=== PATIENT | female | born 1945 | race Two or more races ===

== ENCOUNTER 2018-05-20 02:56 | Emergency (ER) | payer MEDICARE, OTHER ==
[2018-05-20 03:34] LABS: ADD MAN DIFF? NO
[2018-05-20 03:55] LABS: ANION GAP 13 (8-16); BLOOD UREA NITROGEN 20 mg/dl (7-20); CALCIUM 9.4 mg/dl (8.4-10.2); CARBON DIOXIDE 30 mmol/L (21-31); CHLORIDE 102 mmol/L (97-110); CREATININE 0.77 mg/dl (0.44-1.00); GLUCOSE 108 mg/dl (70-220); POTASSIUM 3.9 mmol/L (3.5-5.1); SODIUM 141 mmol/L (135-144)
[2018-05-20 03:56] LABS: INR 0.89; PARTIAL THROMBOPLASTIN TIME 20.4 Sec (23.0-35.0); PROTIME 12.1 Sec (11.9-14.9); PT RATIO 0.9
[2018-05-20 03:59] LABS: D-DIMER 1219.33 ng/ml (<460)
[2018-05-20 04:07] LABS: B-TYPE NATRIURETIC PEPTIDE 161 PG/ML (0-125); TROPONIN-I < 0.012 ng/ml (0.000-0.120)
[2018-05-20] MEDS: ALPRAZOLAM 0.25 MG TAB PO (04:21)
[2018-05-20 04:35] LABS: BASOPHILS % 0.3 % (0.0-2.0); EOSINOPHILS # 0.1 10^3/ul (0.0-0.5); EOSINOPHILS % 0.8 % (0.0-7.0); HEMATOCRIT 36.1 % (37.0-47.0); HEMOGLOBIN 11.9 g/dl (12.0-16.0); LYMPHOCYTES # 1.8 10^3/ul (0.8-2.9); LYMPHOCYTES % 23.9 % (15.0-51.0); MEAN CORPUSCULAR HEMOGLOBIN 31.3 pg (29.0-33.0); MEAN PLATELET VOLUME 10.8 fl (7.4-10.4); MONOCYTE # 0.6 10^3/ul (0.3-0.9); MONOCYTES % 8.4 % (0.0-11.0); NEUTROPHIL # 4.9 10^3/ul (1.6-7.5); NEUTROPHILS % 66.3 % (39.0-77.0); PLATELET COUNT 241 10^3/UL (140-415); RED CELL DISTRIBUTION WIDTH 13.5 % (11.5-14.5)
[2018-05-20 04:35] LABS: WHITE BLOOD COUNT 7.4 10^3/ul (4.8-10.8)
[2018-05-20] MEDS: SOD CHLORIDE 0.9% 100 ML (06:06)
[2018-05-20] MEDS: IOHEXOL 300MG/ML 150 ML BTL (06:06)
== END 2018-05-20 09:09 | disposition home or self-care (01) ==
LOC: E/R 02:56
DX: F41.9 Anxiety disorder, unspecified (principal); D64.9 Anemia, unspecified; I10 Essential (primary) hypertension; Z79.82 Long term (current) use of aspirin
CPT/HCPCS: 36415; 71045; 71275; 80048; 83880; 84484; 85025; 85378; 85610; 85730; 93005; 99285-25

== ENCOUNTER 2019-01-24 17:21 | Emergency (ER) | payer MEDICARE, OTHER ==
[2019-01-24 17:51] LABS: ADD MAN DIFF? NO
[2019-01-24 17:53] LABS: URINE BLOOD (Dip) POC Negative (NEGATIVE); URINE GLUCOSE (Dip) POC Negative (NEGATIVE); URINE KETONES (Dip) POC Negative (NEGATIVE); URINE LEUKOCYTE EST (Dip) POC Negative (NEGATIVE); URINE NITRITE (Dip) POC Negative (NEGATIVE); URINE TOTAL PROTEIN POC Negative (NEGATIVE)
[2019-01-24 17:56] LABS: BASOPHILS % 0.4 % (0.0-2.0); EOSINOPHILS # 0.1 10^3/ul (0.0-0.5); EOSINOPHILS % 0.6 % (0.0-7.0); HEMOGLOBIN 12.1 g/dl (12.0-16.0); LYMPHOCYTES # 3.1 10^3/ul (0.8-2.9); LYMPHOCYTES % 38.1 % (15.0-51.0); MEAN CORPUSCULAR HEMOGLOBIN 31.7 pg (29.0-33.0); MEAN CORPUSCULAR HGB CONC 32.7 g/dl (32.0-37.0); MEAN CORPUSCULAR VOLUME 96.9 fl (82.0-101.0); MONOCYTE # 0.8 10^3/ul (0.3-0.9); NEUTROPHIL # 4.1 10^3/ul (1.6-7.5); NEUTROPHILS % 50.8 % (39.0-77.0); PLATELET COUNT 234 10^3/UL (140-415); RED BLOOD COUNT 3.82 10^6/ul (4.20-5.40); RED CELL DISTRIBUTION WIDTH 13.5 % (11.5-14.5)
[2019-01-24 17:56] LABS: WHITE BLOOD COUNT 8.1 10^3/ul (4.8-10.8)
[2019-01-24 18:13] LABS: ALANINE AMINOTRANSFERASE 21 IU/L (13-69); ALBUMIN 4.2 g/dl (3.3-4.9); ALBUMIN/GLOBULIN RATIO 1.31; ALKALINE PHOSPHATASE 71 IU/L (42-121); ANION GAP 9 (5-13); ASPARTATE AMINO TRANSFERASE 23 IU/L (15-46); BILIRUBIN,INDIRECT 0.5 mg/dl (0-1.1); BILIRUBIN,TOTAL 0.5 mg/dl (0.2-1.3); BLOOD UREA NITROGEN 18 mg/dl (7-20); CALCIUM 9.3 mg/dl (8.4-10.2); CARBON DIOXIDE 26 mmol/L (21-31); CHLORIDE 105 mmol/L (97-110); CREATININE 0.75 mg/dl (0.44-1.00); GLUCOSE 93 mg/dl (70-220); LIPASE 58 U/L (23-300); POTASSIUM 4.1 mmol/L (3.5-5.1); SODIUM 140 mmol/L (135-144); TOTAL PROTEIN 7.4 g/dl (6.1-8.1)
[2019-01-24] MEDS: KETOROLAC 15 MG INJ IV (18:13)
[2019-01-24] MEDS: ONDANSETRON 4 MG INJ IV (19:51)
[2019-01-24] MEDS: morphine 2 MG INJ IV (19:52)
== END 2019-01-24 22:20 | disposition home or self-care (01) ==
LOC: E/R 17:21
DX: R10.32 Left lower quadrant pain (principal); K59.00 Constipation, unspecified; I11.0 Hypertensive heart disease with heart failure; I50.9 Heart failure, unspecified; Z79.82 Long term (current) use of aspirin
CPT/HCPCS: 36415; 74176; 80053; 81003; 83690; 85025; 96374; 96375; 99285-25